=== PATIENT | female | born 1995 | race African-American/Black ===

== ENCOUNTER 2024-12-27 13:05 | Emergency (ER) | payer MEDICAID, SELFPAY ==
[2024-12-27 13:07] VITALS: PULSE 90; RESP 16; O2SAT 98
[2024-12-27 13:10] VITALS: BMI 30.8
[2024-12-27 13:12] VITALS: BP 121/75; PULSE 48; RESP 17; TEMP 36.6; O2SAT 98; BMI 30.8
--- NOTE | 2024-12-27 13:15 | EKG_ITS ---
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
--- NOTE | 2024-12-27 13:16 | PD.EDADULT ---
ED General RME/HPI General Chief complaint: Abdominal Pain Stated complaint: ABDOMINAL PAIN Time Seen by Provider: 12/27/24 13:14 Arrival date/time: 12/27/24 13:05 CC: Left lower quadrant abdominal pain low center onset 2 days ago progressive increase in severity persistent nighttime and daytime. States last menstrual cycle was December 14, patient states she is currently bleeding and is sexually active. Takes no medications on a daily basis denies fever chills chest pain shortness of breath or difficulty breathing. Patient is G7, P3 including this Related Data Home Medications ?Medication ?Instructions ?Recorded ?Confirmed prenat.vits,jeff,[id number]-ymgwn 1 tab PO QDAY 06/18/23 12/27/24 amlodipine 5 mg tablet 5 mg PO QDAY 12/27/24 12/27/24 atorvastatin 80 mg tablet (Lipitor) 80 mg PO QDAY 12/27/24 12/27/24 clopidogrel 75 mg tablet 75 mg PO QDAY 12/27/24 12/27/24 furosemide 40 mg tablet (Lasix) 40 mg PO QAM 12/27/24 12/27/24 gabapentin 100 mg capsule 100 mg PO QDAY 12/27/24 12/27/24 lisinopril 2.5 mg tablet (Zestril) 2.5 mg PO QDAY 12/27/24 12/27/24 metoprolol tartrate 25 mg tablet 25 mg PO QDAY 12/27/24 12/27/24 pioglitazone 30 mg tablet (Actos) 30 mg PO QDAY 12/27/24 12/27/24 sitagliptin phosphate 100 mg 100 mg PO QDAY 12/27/24 12/27/24 tablet (Januvia) Previous Rx's ?Medication ?Instructions ?Recorded diphenhydramine HCl 25 mg capsule 25 mg PO TID PRN itching #30 caps 06/19/23 ibuprofen 600 mg tablet 600 mg PO Q6H PRN pain #30 tabs 06/19/23 simethicone 180 mg capsule 180 mg PO BID PRN abdominal 06/20/23 distention #14 caps hydrocodone 5 mg-acetaminophen 325 1 tab PO Q6H PRN pain #5 tabs 12/27/24 mg tablet ondansetron 4 mg disintegrating 4 mg PO Q8H #10 tabs 12/27/24 tablet Allergies Allergy/AdvReac Type Severity Reaction Status Date / Time latex Allergy Mild Rash Verified 12/27/24 13:07 Review of Systems Review of Systems Narrative Review of Systems: GEN: No fever, no chills, no weight loss EYES: No discharge, no visual changes, no pain HEENT: No ear pain, no congestion, no sore throat PULM: No shortness of breath, no cough, no congestion CV: No chest pain, no dyspnea on exertion, no palpitations GI: No nausea, no vomiting, no diarrhea, + pain, no constipation : No frequency, no urgency, no dysuria MUSC/SKEL: No joint pain, no back pain SKIN: No rash PSYCH: No hallucinations, no depression HEME/LYMPH: No easy bleeding or bruising tendencies NEURO: No weakness, no headache ED Exam Narrative Physical exam: [General: In moderate discomfort not in any acute distress Head normocephalic HEENT: Eyes pupils are PERRLA EOMs are intact. All other subsystems of HEENT are within acceptable limits Neck is supple nontender Chest equal chest rise nontender to palpation Respiratory: Clear to auscultation no wheezes crackles or rubs CV: Rate rhythm is regular no murmurs rubs or clicks Abdomen: Left lower quadrant abdominal pain no reflexive guarding or rebound tenderness very low in the left lower quadrant just proximal to the inguinal crease and lateral to the pubis mons. No other pain with palpation in the upper epigastrium and upper quadrants or right lower quadrant. Back: No CVA tenderness no spinous process tenderness from cervical spine thoracic and lumbar spine Skin: Intact no petechiae rash induration ulceration or crepitus Extremities: Moving all extremity against resistance cap refill less than 2 seconds neurosensory intact Neuro: Awake alert oriented x3 Glascow coma 15 no focal deficits] Course Course Course Narrative: Patient's case discussed with Dr. Nelson, who came and saw the patient in the emergency room. Per Ms. Dr. Nelson the patient qualifies for methotrexate this will be started in his office in several days. Will discharge the patient home with pain medications to follow-up with him. Quality Measures none Orders Category Date Time Status EKG (ED ONLY) *Do not use* NOW Care 12/27/24 13:15 Completed EKG (ED Only) Stat Exams 12/27/24 13:15 Draft US OB transvaginal Stat Exams 12/27/24 13:18 Completed B-Type Natriuretic Peptide Stat Lab 12/27/24 13:27 Completed Beta HCG,Quantitative Stat Lab 12/27/24 13:27 Completed CBC Stat Lab 12/27/24 13:27 Completed Comprehensive Metabolic Panel Stat Lab 12/27/24 13:27 Completed Lipase Stat Lab 12/27/24 13:27 Completed Magnesium Stat Lab 12/27/24 13:27 Completed Partial Thromboplastin Time Stat Lab 12/27/24 13:27 Completed Prothrombin Time with INR Stat Lab 12/27/24 13:27 Completed Metoclopramide Inj [Reglan Inj] Med 12/27/24 13:35 Discontinued 10 mg IVP X1 ONE Morphine* Inj Med 12/27/24 15:58 Discontinued 4 mg IVP X1 ONE Ondansetron Inj [Zofran Inj] Med 12/27/24 14:45 Discontinued 4 mg IVP X1 ONE Ringers Lactated 1000 ml [Lactated Ringers] 1,000 ml Med 12/27/24 13:41 Discontinued IV 999 mls/hr Sodium Chloride 0.9% 1000 ml [Ns] 1,000 ml Med 12/27/24 14:45 Discontinued IV 125 mls/hr Sodium Chloride 0.9% 1000 ml [Ns] 1,000 ml Med 12/27/24 15:59 Discontinued IV 125 mls/hr Vital Signs Vital signs: Vital Signs Temperature 97.8 F 12/27/24 13:12 Pulse Rate 48 L 12/27/24 13:12 Respiratory Rate 17 12/27/24 13:12 Blood Pressure 121/75 12/27/24 13:12 Pulse Oximetry (%) 98 12/27/24 13:12 Oxygen Delivery Method Room Air 12/27/24 13:12 Discharge Plan Plan Patient Disposition: HOME (Self Care) Patient condition on transfer: Stable Prescriptions/Referrals Prescriptions/Med Rec: New hydrocodone-acetaminophen 5-325 mg tablet 1 tab PO Q6H MDD 9 PRN (Reason: pain) Qty: 5 0RF ondansetron 4 mg tablet,disintegrating 4 mg PO Q8H Qty: 10 0RF No Action prenat.vits,jeff,fdn-pkwu-njjiz Tablet 1 tab PO QDAY ibuprofen 600 mg tablet 600 mg PO Q6H PRN (Reason: pain) Qty: 30 0RF diphenhydramine HCl 25 mg capsule 25 mg PO TID PRN (Reason: itching) Qty: 30 0RF simethicone 180 mg capsule 180 mg PO BID PRN (Reason: abdominal distention) Qty: 14 0RF amlodipine 5 mg tablet 5 mg PO QDAY atorvastatin [Lipitor] 80 mg tablet 80 mg PO QDAY clopidogrel 75 mg tablet 75 mg PO QDAY furosemide [Lasix] 40 mg tablet 40 mg PO QAM gabapentin 100 mg capsule 100 mg PO QDAY Januvia 100 mg tablet 100 mg PO QDAY lisinopril [Zestril] 2.5 mg tablet 2.5 mg PO QDAY metoprolol tartrate 25 mg tablet 25 mg PO QDAY pioglitazone [Actos] 30 mg tablet 30 mg PO QDAY Referrals: Jose Juan Park MD [Physician, Family Practice] - In 1 week Colin Nelson MD [Physician, [employer] INSTALLATION SUPERVISOR] - In 1 week Problem List Clinical Impression: Ectopic Patient/Caregiver Discharge Instructions Education Materials: Ectopic Additional Instructions: Follow-up with Dr. Nelson, use the pain pills as needed for temporary pain relief. Use the nausea medicine as needed. Print Language: Mosotho Stand Alone Forms: Markkit Info., Work/School Release, Patient Portal Info Letter PA/DARVIN Supervising Physician PA/CONTRACT ASSISTANT Supervising Physician: Ion Balderas ENP [facility] Clinical Information Provided by: patient and EMS Medical Records reviewed [facility] and EMS Meds/Rx considered, not ordered None Labs/Rad/Tests considered, not ordered None Chronic Illness/Social Conditions which may negatively complicate care or outcome(s)-explain: None or not applicable Labs Labs: interpreted by ar Lab(s) Interpretation(s): CBC shows no acute leukocytosis anemia thrombocytopenia Coags within acceptable limits CMP shows no significant electrolyte imbalances renal impairment transaminitis or T. bili elevation Beta quant at 2464. Lipase of 22 Imaging Imaging interpretation: interpreted by me Medication Administration(s) Medication Administration History Discontinued Medications Lactated Ringer's (Lactated Ringers) 1,000 mls @ 999 mls/hr IV .Q1H1M ONE Stop: 12/27/24 14:41 Last Infusion: 12/27/24 14:56 Dose: Infused Documented By: Admin: 12/27/24 13:43 Dose: 999 mls/hr Documented By: ZOEY Sodium Chloride (Ns) 1,000 mls @ 125 mls/hr IV .Q8H [facility] Stop: 01/26/25 14:44 Last Admin: 12/27/24 14:51 Dose: 125 mls/hr Documented By: ZOEY Sodium Chloride (Ns) 1,000 mls @ 125 mls/hr IV .Q8H [facility] Stop: 01/26/25 15:58 Last Admin: 12/27/24 16:07 Dose: Not Given Documented By: ZOEY Non-Admin Reason: Duplicate Medication on eMAR Metoclopramide HCl (Metoclopramide Inj 5 Mg/Ml Vial 2 Ml) 10 mg IVP X1 ONE; Protocol Stop: 12/27/24 13:36 Last Admin: 12/27/24 13:42 Dose: 10 mg Documented By: ZOEY Morphine Sulfate (Morphine Sulf Inj 4 Mg/Ml Vial) 4 mg IVP X1 ONE Stop: 12/27/24 15:59 Last Admin: 12/27/24 16:05 Dose: 4 mg Documented By: ZOEY Ondansetron HCl (Ondansetron Inj 2 Mg/Ml Inj 2 Ml) 4 mg IVP X1 ONE; Protocol Stop: 12/27/24 14:46 Last Admin: 12/27/24 14:51 Dose: 4 mg Documented By: ZOEY Diagnosis Differential Diagnosis ED Complaint MDM: Ectopic SAB diverticulitis ovarian cyst
--- NOTE | 2024-12-27 13:18 | XR_ITS ---
Examination: Transvaginal ultrasound of the pelvis, complete Technique: Transvaginal sonographic images pelvis performed using reynolds scale imaging Exam date and time: December 27, 2024, 1510 hours. INDICATIONS: Left lower pelvic pain and vomiting beginning 2 days ago FINDINGS: Uterus 7.1 cm endometrium 0.8 cm No intrauterine gestation Right ovary 2.8 cm arterial flow Left ovary 4.0 cm arterial flow Cystic area which may represent an intrauterine gestational sac 0.8 cm corresponding to 5 weeks 4 days gestational age No pole No cardiac activity IMPRESSION: Findings consistent with left ectopic
[2024-12-27] MEDS: METOCLOPRAMIDE INJ 5 MG/ML VIAL 2 ML 10 MG IVP (13:42)
[2024-12-27] MEDS: RINGERS LACTATED 1000 ML 1,000 ML 999 ML IV (13:43)
[2024-12-27 13:45] LABS: Basophils # (Auto) 0.1 Thou/mm3 (0.0-0.2); Basophils % (Auto) 1 % (0-2.5); Eosinophils # (Auto) 0.1 Thou/mm3 (0.0-0.5); Eosinophils % (Auto) 1 % (0-10); Hematocrit 40.9 % (36.0-46.0); Hemoglobin 13.7 g/dL (12.0-16.0); Immature Granulocytes Auto 0.04 Thou/mm3 (0.00-0.00); Lymphocytes # (Auto) 3.1 Thou/mm3 (1.0-4.8); Lymphocytes % (Auto) 30 % (10-50); Mean Corpuscular HGB Conc 33.5 g/dl (31.0-37.0); Mean Corpuscular Hemoglobin 28.6 pg (25.0-35.0); Mean Corpuscular Volume 85 fL (80-100); Monocytes # (Auto) 0.5 Thou/mm3 (0.0-0.8); Monocytes % (Auto) 5 % (0-12); Neutrophils # (Auto) 6.4 Thou/mm3 (1.8-7.7); Neutrophils % (Auto) 63 % (37-80); Nucleated Red Blood Cell # 0.00 Thou/mm3 (0.00-0.00); Nucleated Red Blood Cell % 0 /100 WBC (0); Platelet Count 258 Thou/mm3 (140-440); RDW Standard Deviation 44.8 fL (36.4-46.3); Red Blood Count 4.79 Miln/mm3 (4.00-5.20); White Blood Count 10.1 Thou/mm3 (3.6-11.0)
[2024-12-27 14:00] LABS: INR 1.0 (0.9-1.3); Partial Thromboplastin Time 26.5 Seconds (22.0-36.0); Prothrombin Time 10.8 Seconds (9.0-12.2)
[2024-12-27 14:03] LABS: Alanine Aminotransferase 28 U/L (10-49); Albumin, Serum 3.8 gm/dL (3.5-5.0); Albumin/Globulin Ratio 1.7 (1.2-2.2); Alkaline Phosphatase 72 U/L (46-116); Anion Gap 11 (7-16); Aspartate Amino Transferase 35 U/L (0-34); BUN/Creatinine Ratio 7 Ratio (12-20); Bilirubin,Total 1.0 mg/dL (0.3-1.2); Blood Urea Nitrogen < 5 mg/dL (9-23); Calcium 8.6 mg/dL (8.3-10.6); Calcium (Corrected) 8.8 mg/dL (8.5-10.1); Carbon Dioxide 22.2 mMol/L (20.0-31.0); Chloride 107 mMol/L (98-107); Creatinine (Component) 0.7 mg/dL (0.6-1.3); Estimated Creatinine Clearance 137.3 mL/min (>60); Globulin 2.2 gm/dL (2.3-3.5); Glucose 94 mg/dL (74-106); Lipase 22 U/L (12-53); Magnesium 1.8 mg/dL (1.6-2.6); Osmolality,Calculated 276 (275-295); Potassium 3.4 mMol/L (3.4-5.1); Sodium 140 mMol/L (136-145); Total Protein 6.0 gm/dL (5.7-8.2); eGFR > 60 See Note
[2024-12-27 14:08] LABS: B-Type Natriuretic Peptide 56 pg/mL (0-100)
[2024-12-27 14:14] LABS: Beta HCG,Quantitative 2464 mIU/mL (<5.0)
[2024-12-27] MEDS: ONDANSETRON INJ 2 MG/ML INJ 2 ML 4 MG IVP (14:51)
[2024-12-27] MEDS: SODIUM CHLORIDE 0.9% 1000 ML 1,000 ML 125 ML IV (14:51)
[2024-12-27] MEDS: MORPHINE SULF INJ 4 MG/ML VIAL IVP (16:05)
--- NOTE | 2024-12-27 16:37 | PC.NURSE ---
md benz at bedside for obgyn
[2024-12-27 16:38] VITALS: BP 122/76; PULSE 51; RESP 20; O2SAT 99
--- NOTE | 2024-12-27 17:02 | PD.GYNCONS ---
PILLOWCASE CLEANER HPI Data of Consult Patient: new to practice Consult date: 12/27/24 Primary Care Provider: Faviola Reyes PA-C Consult Narrative History of present illness: Lower abdominal pain Patient is a 36-year-old at 5 weeks and 4 days gestation, presenting with lower abdominal pain and diagnosed with a left ectopic . The ectopic is located at the junction of the tube and ovary on the left side. The patient's ultrasound shows a cystic area measuring 0.8 centimeters, corresponding to 5 weeks and 4 days of gestation, without a pole or cardiac activity. The sac is described as small, measuring 2 centimeters. The patient's hormone level (serum hCG) is 2464. The patient's symptoms and clinical presentation meet the criteria for potential treatment with methotrexate, as her hCG is less than 5000, the sac is less than 5 centimeters, and there is no pole or heart rate detected. Obstetric History: - GPAL: A3 L3 - Current : Ectopic , left ectopic located at the junction of the tube and ovary, gestational age 5 weeks and 4 days - Serum hC mIU/mL - Transvaginal ultrasound: Cystic area measuring 0.8 cm, corresponds to 5 weeks and 4 days gestational age, no pole, no cardiac activity, findings consistent with left ectopic cc:: cc: Review of Systems Review of Systems Systems Reviewed: All systems reviewed, normal except as documented Meds Home Medications and Allergies Home Medications ?Medication ?Instructions ?Recorded ?Confirmed ?Type prenat.vits,jeff,[id number]-xndgs 1 tab PO QDAY 06/18/23 12/27/24 History amlodipine 5 mg tablet 5 mg PO QDAY 12/27/24 12/27/24 History atorvastatin 80 mg tablet (Lipitor) 80 mg PO QDAY 12/27/24 12/27/24 History clopidogrel 75 mg tablet 75 mg PO QDAY 12/27/24 12/27/24 History furosemide 40 mg tablet (Lasix) 40 mg PO QAM 12/27/24 12/27/24 History gabapentin 100 mg capsule 100 mg PO QDAY 12/27/24 12/27/24 History lisinopril 2.5 mg tablet (Zestril) 2.5 mg PO QDAY 12/27/24 12/27/24 History metoprolol tartrate 25 mg tablet 25 mg PO QDAY 12/27/24 12/27/24 History pioglitazone 30 mg tablet (Actos) 30 mg PO QDAY 12/27/24 12/27/24 History sitagliptin phosphate 100 mg 100 mg PO QDAY 12/27/24 12/27/24 History tablet (Januvia) Allergies Allergy/AdvReac Type Severity Reaction Status Date / Time latex Allergy Mild Rash Verified 12/27/24 13:07 Exam - PILLOWCASE CLEANER Vital Signs Temp Pulse Resp BP Pulse Ox O2 Del Method 97.8 F 51 L 20 122/76 99 Room Air 12/27/24 13:12 12/27/24 16:38 12/27/24 16:38 12/27/24 16:38 12/27/24 16:38 12/27/24 16:38 Constitutional Constitutional: no acute distress Routine Abdominal Exam Abdominal: Present soft, normoactive bowel sounds and tenderness (suprapubic, LLQ+) PILLOWCASE CLEANER - Results Labs 12/27/24 13:27 12/27/24 13:27 Labs: Short CBC 12/27/24 Range/Units 13:27 WBC 10.1 (3.6-11.0) Thou/mm3 Hgb 13.7 (12.0-16.0) g/dL Hct 40.9 (36.0-46.0) % Plt Count 258 (140-440) Thou/mm3 BMP 12/27/24 13:27 Sodium 140 Potassium 3.4 Chloride 107 Carbon Dioxide 22.2 BUN < 5 L Creatinine 0.7 Glucose 94 Calcium 8.6 Liver Function 12/27/24 Range/Units 13:27 Total Bilirubin 1.0 (0.3-1.2) mg/dL AST 35 H (0-34) U/L ALT 28 (10-49) U/L Alkaline Phosphatase 72 (46-116) U/L Albumin 3.8 (3.5-5.0) gm/dL Assessment and Plan Assessment and plan (1) Ectopic , tubal: Status: Acute Assessment and plan: Left Ectopic Assessment: Patient has been diagnosed with a left ectopic based on ultrasound findings and serum hCG levels. Transvaginal ultrasound revealed a cystic area measuring 0.8 centimeters, corresponding to 5 weeks and 4 days gestation, without a pole or cardiac activity. The ectopic is located at the junction of the left fallopian tube and ovary. Serum hCG level is 2464 mIU/mL. The ectopic meets ACOG criteria for medical management: hCG less than 5000 mIU/mL, sac less than 5 centimeters, no pole, and no cardiac activity. Plan: - Administer methotrexate injection for medical management of ectopic - Prescribe pain medication for symptom management - Obtain blood tests on day 4 and day 7 post-injection to monitor treatment response - Follow-up visits scheduled every 3 days until resolution of ectopic - Patient instructed to return immediately if pain worsens or condition changes - Informed consent obtained: patient educated on treatment options, risks, and benefits Methotrexate Criteria for Ectopic (ACOG/SMFM Guidelines) I. Indications (All should be met): - Hemodynamically stable (no rupture or active bleeding) - Confirmed or high suspicion of ectopic - No contraindication to methotrexate - Reliable follow-up for serial ?-hCG and clinical monitoring - Ectopic mass <=.5?4 cm on transvaginal ultrasound - No cardiac activity in the ectopic mass - ?-hCG usually <5,000 mIU/mL (higher levels associated with lower success rates, but not absolute contraindication) III. Treatment Protocols Single-dose regimen (most common): - Methotrexate 50 mg/m? IM on Day 1 - ?-hCG monitoring on Days 4 and 7 - Expect >=5% drop from Day 4 ? Day 7 - If not, repeat dose or proceed to surgery Alternative regimens: - Two-dose or multidose protocols for higher ?-hCG or slower decline IV. Follow-up: - Continue weekly ?-hCG until non- level (<5 mIU/mL) - Posting Specialist regarding avoiding conception for at least 3 months post-therapy
[2024-12-27 18:00] VITALS: BP 122/76; PULSE 56; RESP 18; O2SAT 100
== END 2024-12-27 18:03 | disposition home or self-care (01) ==
PROVIDERS: Registered Nurse General Practice; Emergency Provider Emergency Medicine; PCP Physician Assistant
DX: O00.90 Unspecified ectopic pregnancy without intrauterine pregnancy (principal); R00.1 Bradycardia, unspecified; I49.8 Other specified cardiac arrhythmias
CPT/HCPCS: 36415; 76817; 80053; 80307; 81001; 81025; 83690; 83735; 83880; 84702; 85025; 85610; 85730; 93005; 96361; 96374; 96375; 99284; J2270; J2405; J2765; J7030; J7120

== ENCOUNTER 2024-12-28 14:54 | Outpatient (RCR) | payer MEDICAID, SELFPAY | END 2025-01-20 23:59 | disposition home or self-care (01) | LOC: SCTI 14:54 | PROVIDERS: PCP Obstetrics & Gynecology; Referring Provider Obstetrics & Gynecology; Visit Provider Obstetrics & Gynecology | DX: O00.90 Unspecified ectopic pregnancy without intrauterine pregnancy (principal) | CPT/HCPCS: 96402; J9260 ==

== ENCOUNTER 2025-01-03 09:09 | Outpatient (AMB) | payer MEDICAID, SELFPAY ==
[2025-01-03 09:24] VITALS: BP 134/85; PULSE 62; RESP 18; TEMP 36.2; O2SAT 98; BMI 31.7
--- NOTE | 2025-01-03 09:24 | GYNCLNT_ITS ---
Vital Signs 01/03/25 09:24 Height 1.7 m Height Method Stated Weight 91.796 kg Weight Measurement Method Standing Scale BMI 31.7 BP 134/85 H Blood Pressure Source Automatic Cuff Blood Pressure Location Left Upper Arm Position Sitting Respiration 18 Pulse 62 Pulse Source Monitor Temp 97.2 F Temp Source Oral Pulse Oximetry (%) 98 Oxygen Delivery Method Room Air Allergies/Home Meds Allergies & Medications Allergies latex Allergy (Mild, Verified 01/03/25 09:26) Rash Medication Reconciliation prenat.vits,jeff,msn-saqx-yfnuu 1 tab PO QDAY 06/18/23 [History Confirmed 01/03/25] diphenhydramine HCl 25 mg capsule 25 mg PO TID PRN itching #30 caps 06/19/23 [Rx Confirmed 01/03/25] ibuprofen 600 mg tablet 600 mg PO Q6H PRN pain #30 tabs 06/19/23 [Rx Confirmed 01/03/25] simethicone 180 mg capsule 180 mg PO BID PRN abdominal distention #14 caps 06/20/23 [Rx Confirmed 01/03/25] amlodipine 5 mg tablet 5 mg PO QDAY 12/27/24 [History Confirmed 01/03/25] atorvastatin 80 mg tablet (Lipitor) 80 mg PO QDAY 12/27/24 [History Confirmed 01/03/25] clopidogrel 75 mg tablet 75 mg PO QDAY 12/27/24 [History Confirmed 01/03/25] furosemide 40 mg tablet (Lasix) 40 mg PO QAM 12/27/24 [History Confirmed ] gabapentin 100 mg capsule 100 mg PO QDAY 12/27/24 [History Confirmed 01/03/25] hydrocodone 5 mg-acetaminophen 325 mg tablet 1 tab PO Q6H PRN pain #5 tabs 12/27/24 [Rx Confirmed 01/03/25] lisinopril 2.5 mg tablet (Zestril) 2.5 mg PO QDAY 12/27/24 [History Confirmed 01/03/25] metoprolol tartrate 25 mg tablet 25 mg PO QDAY 12/27/24 [History Confirmed 01/03/25] ondansetron 4 mg disintegrating tablet 4 mg PO Q8H #10 tabs 12/27/24 [Rx Confirmed 01/03/25] pioglitazone 30 mg tablet (Actos) 30 mg PO QDAY 12/27/24 [History Confirmed 01/03/25] sitagliptin phosphate 100 mg tablet (Januvia) 100 mg PO QDAY 12/27/24 [History Confirmed 01/03/25] Intake Visit Data Collection New Patient or Established: Established Patient (seen at [facility] within 3 years) Reason for Visit:: ER FOLLOW UP Seen by Clinical Staff ONLY (RN/MA): No Strip Feeder Required: No Do You Feel Safe at Home: Yes Authorities Contacted: N/A PCP or OBGYN visit in last 3 months: Yes Date of Last PCP or OBGYN visit: 12/27/24 Hx Now: No Are you currently on any form of Control: No Last menstrual period: 12/12/24 Pain Present Currently: No Pain Scale Used: Murray-Ferrara/Numerical Pain scale:: 0 Smoking Status Smoking Status: Never smoker 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 Menstrual regularity: regular Flow: normal Monthly: Yes How many days does period last: 5 Age at menarche: 11 Menopausal: No Currently sexually active: Yes 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 1. Little interest or pleasure in doing things: not at all 2. Feeling down, depressed, or hopeless: not at all Total score: 0 PHQ-9 3. Trouble falling or staying asleep, or sleeping too much: Not at all 4. Feeling tired or having little energy: Not at all 5. Poor appetite or overeating: Not at all 6. Feeling bad about yourself - or that you are a failure or have let yourself or your family down: Not at all 7. Trouble concentrating on things, such as reading the newspaper or watching television: Not at all 8. Moving or speaking so slowly that other people could have noticed? - Or the opposite - being so fidgety or restless that you have been moving around a lot more than usual: not at all 9. Thoughts that you would be better off or of hurting yourself in some way: Not at all Total score: 0 If you checked off any problems, how difficult have these problems made it for you to do your work, take care of things at home, or get along with other people?: not difficult at all Source: Developed by Drs. Ollie Wray, Liliam Bowman, Constantino Westfall and colleagues, with an educational jono from [employer]. Depression screen completed yes Social History Living Situation History Marital Status: Single Housing: Apartment Tobacco History Smoking Status: Never smoker Alcohol History Alcohol Intake: Former Alcohol Intake Frequency: holidays/special occasions only Substance Use History Substance Use: THC Domestic Abuse History Do You Feel Safe at Home: Yes History of Present Illness HPI Narrative Zoya Bowman is a 36-year-old presenting for 4-day follow-up after receiving methotrexate treatment for suspected ectopic . The patient was initially seen in the emergency room on August 30, 2024 for suspected left- sided ectopic and received methotrexate on December 28, 2024. She is currently asymptomatic, reporting no pain or nausea, and is able to perform all her regular activities without limitation. The patient is adherent to the prescribed treatment regimen and follow-up schedule. She has received methotrexate on December 28, 2024. The patient has a history of suspected ectopic on the left side and is currently undergoing follow- up monitoring with serial HCG levels. The patient has been taking methotrexate received on December 28, 2024. ROS: Negative except as stated above, limited to SALES ARCHITECT and pertinent complaints. Exam General General Appearance: alert, in no apparent distress and healthy appearing Head Head exam: atraumatic Neck Neck exam: Present normal inspection and trachea midline Chest Chest inspection: Present normal inspection and symmetric chest wall rise External exam: Present normal external exam; Absent tenderness Neuro Neurological exam: Present oriented X3 Psych Psychiatric exam: Present normal affect and normal mood Office Procedures OBC Clinic LOC & Office Proc's Nursing/Assessment Patient Status: Established Patient OB Clinic Nursing Assessment: Medication Reconciliation, Update PMH in EMR and Vital Signs OB Clinic Coordination of Care: Consent,records obtained, informed consent, Education Simp Pt/Fam, Lab and Imaging orders, Results/Orders obtained and Staff clarify orders Established Patient Charge Established Patient Point Assignment: 80 Established Patient Point Charge: EP Level 3 (80-115) Assessment & Plan Diagnosis / Problem List (1) Ectopic , tubal: Status: Acute (2) Ectopic : Status: Acute Plan Ectopic , left-sided: - Patient diagnosed with suspected left-sided ectopic with serum HCG of 2460. - Received methotrexate treatment on December 28, 2024. - 4-day post-treatment follow-up with no pain or nausea, performing regular activities normally. Plan: - Serial HCG monitoring with two separate lab orders: one today and one on Thursday. - Expected HCG pattern: today's level should be similar or slightly lower than previous, Thursday's level should show significant decrease. - Telephone follow-up appointment scheduled for next Thursday to review lab results. - Continue monitoring until HCG negative. - Once HCG becomes negative, patient can schedule follow-up appointment for control consultation.
== END 2025-01-03 09:39 | disposition home or self-care (01) ==
PROVIDERS: PCP Physician Assistant; Referring Provider Physician Assistant; Supervising Provider Obstetrics & Gynecology; Visit Provider Obstetrics & Gynecology
DX: O00.102 Left tubal pregnancy without intrauterine pregnancy (principal); Z91.040 Latex allergy status
CPT/HCPCS: 99213; G0463